=== PATIENT | male | born 1965 | race African-American/Black ===

== ENCOUNTER 2022-09-20 19:09 | Emergency (ER) | payer MEDICAID ==
[~2022-09-20] VITALS: Ht 175.3 cm; Wt 81.0 kg
[2022-09-20 19:11] VITALS: BP 131/86
[2022-09-20] MEDS ORDERED: IBUP-2030 MT (22:07)
== END 2022-09-20 22:19 | disposition home or self-care (01) ==
LOC: ER 19:22
DX: M54.2 Cervicalgia (principal); M54.59 Other low back pain; G89.11 Acute pain due to trauma; V49.49XA Driver injured in collision with other motor vehicles in traffic accident, initial encounter; I10 Essential (primary) hypertension; E11.9 Type 2 diabetes mellitus without complications; Y93.89 Activity, other specified; Y92.488 Other paved roadways as the place of occurrence of the external cause
CPT/HCPCS: 72100; 99284